=== PATIENT | male | born 1960 | race Caucasian/White ===

== ENCOUNTER 2016-07-19 03:18 | Emergency (ER) | payer OTHER, SELFPAY ==
[2016-07-19 04:15] LABS: Bilirubin Negative (Negative); Blood, Urine Negative (Negative); Glucose, Urine (Dipstick) Negative (Negative); Ketone, Urine Negative (Negative); Nitrite Negative (Negative); Protein, Urine (Dipstick) Negative (Neg-Trace); Urobilinogen 0.2 mg/dL (0.2-1.0)
[2016-07-19 04:19] LABS: Hematocrit 46.8 % (42.0-52.0); Mean Platelet Volume 5.7 fL (7.4-10.4)
[2016-07-19 04:27] LABS: Methadone Not Detected (NotDetected); Methamphetamine Not Detected (NotDetected)
[2016-07-19 04:28] LABS: ALT (SGPT) 22 U/L (0-55); AST (SGOT) 28 U/L (5-34); Acetaminophen Less than 3.0 mcg/mL (10.0-30.0); Alkaline Phosphatase 77 U/L (40-150); Anion Gap 18 mmol/L (10-20); BUN (Urea Nitrogen) 7 mg/dL (8.4-25.7); Bilirubin, Total 0.4 mg/dL (0.2-1.2); Calc. Creatinine Clearance 0 mL/min (70-130); Calcium 9.3 mg/dL (7.8-10.44); Carbon Dioxide 21 mmol/L (22-29); Chloride 104 mmol/L (98-107); Estimated GFR-MDRD 90; Globulin 3.3 g/dL (2.4-3.5); Protein, Total 7.8 g/dL (6.0-8.3); Salicylate Less than 5.0 mg/dL (15.0-30.0)
[2016-07-19 04:37] LABS: #Basophils 0.1 thou/uL (0.0-0.2); #Eosinphils 0.1 thou/uL (0.0-0.7); #Lymphocytes 1.9 thou/uL (1.20-3.40); #Monocytes 0.9 thou/uL (0.11-0.59); #Neutrophils 8.5 thou/uL (1.40-6.50); %Basophils 1.1 % (0.0-1.0); %Eosinophils 1.1 % (0.0-10.0); %Monocytes 8.4 % (0.0-10.0); Macrocytosis SLIGHT = 6-15 cells (100X) (0-5/hpf)
[2016-07-19] MEDS ORDERED: Adacel (T-DAP) 0.5 ML VIAL ONE (04:38)
[2016-07-19] MEDS ORDERED: traMADol HCl 50 MG TAB ONE (04:39)
[2016-07-19] MEDS ORDERED: Ibuprofen 800 MG TAB ONE (04:39)
--- NOTE | 2016-07-19 09:58 | RAD ---
LEFT HUMERUS: DATE: 07/19/16. Four views show no fracture or other acute change. There is no dislocation at the shoulder. The AC joint is normal in width. The visible adjacent ribs appeared intact and the left lung was clear. IMPRESSION: No acute bony finding. POS: HOME
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
== END 2016-07-19 08:47 | disposition home or self-care (01) ==
LOC: BURERS 03:18
DX: S01.21XA Laceration without foreign body of nose, initial encounter (principal); S00.83XA Contusion of other part of head, initial encounter; S40.022A Contusion of left upper arm, initial encounter; F32.9 Major depressive disorder, single episode, unspecified; F43.20 Adjustment disorder, unspecified; X58.XXXA Exposure to other specified factors, initial encounter
CPT/HCPCS: 36415; 70450; 70486; 80053; 80306; 80307; 81003; 84443; 85025; 90471; 90715

== ENCOUNTER 2016-12-14 22:22 | Emergency (ER) | payer OTHER ==
[2016-12-14] MEDS ORDERED: Ketorolac Tromethamine 30 MG/ML VIAL ONE (22:54)
--- NOTE | 2016-12-14 23:00 | RAD ---
CHEST TWO VIEWS: Date: 12-14-16 Comparison: 05-21-[address] [facility]. FINDINGS: The heart is normal in size. The mediastinum shows no widening, shift, or mass. The lungs are fully inflated with no effusions seen. No major infiltrate was seen on the PA view. On the lateral view th ere is a little bit of retrocardiac streaking which may or may not be significant though I cannot fi nd a definite infiltrate on the frontal view. The bones are osteopenic. IMPRESSION: Probably no acute findings. Equivocal retrocardiac streaking. POS: HOME
[2016-12-14 23:14] LABS: ALT (SGPT) 17 U/L (8-55); AST (SGOT) 18 U/L (5-34); Albumin 4.4 g/dL (3.5-5.0); Alkaline Phosphatase 79 U/L (40-150); Anion Gap 17 mmol/L (10-20); BUN (Urea Nitrogen) 10 mg/dL (8.4-25.7); Bilirubin, Total 0.3 mg/dL (0.2-1.2); Calc. Creatinine Clearance 0 mL/min (70-130); Calcium 9.5 mg/dL (7.8-10.44); Carbon Dioxide 22 mmol/L (22-29); Chloride 106 mmol/L (98-107); Estimated GFR-MDRD 89; Globulin 3.3 g/dL (2.4-3.5); Glucose 104 mg/dL (70-105); Potassium 3.7 mmol/L (3.5-5.1); Protein, Total 7.7 g/dL (6.0-8.3); Sodium 141 mmol/L (136-145)
[2016-12-14 23:16] LABS: CKMB 1.6 ng/mL (0-6.6); Troponin I Less than 0.010 ng/mL (< 0.028)
[2016-12-14 23:21] LABS: #Basophils 0.1 thou/uL (0.0-0.2); #Eosinphils 0.2 thou/uL (0.0-0.7); #Lymphocytes 2.9 thou/uL (1.20-3.40); #Monocytes 0.7 thou/uL (0.11-0.59); #Neutrophils 5.7 thou/uL (1.40-6.50); %Basophils 0.9 % (0.0-1.0); %Eosinophils 2.5 % (0.0-10.0); %Lymphocytes 29.9 % (21.0-51.0); %Monocytes 7.1 % (0.0-10.0); %Neutrophils 59.5 % (42.0-75.0); MDiff Complete? YES; Mean Corpuscular HGB CONC 36.3 g/dL (32.0-36.0); Mean Corpuscular Volume 96.6 fl (80.0-94.0); Mean Platelet Volume 6.7 fL (7.4-10.4); Platelet Count 296 thou/uL (130-400); RBC Distribution Width 11.8 % (11.5-14.5); RBC Morphology Normal; Red Blood Cell (RBC) Count 4.58 mill/uL (4.70-6.10); Small Platelets SLIGHT; White Blood Cell (WBC) Count 9.6 thou/uL (4.8-10.8)
== END 2016-12-14 23:43 | disposition home or self-care (01) ==
LOC: BURERS 22:22
DX: M54.12 Radiculopathy, cervical region (principal); I10 Essential (primary) hypertension; J44.9 Chronic obstructive pulmonary disease, unspecified; M19.90 Unspecified osteoarthritis, unspecified site; F41.9 Anxiety disorder, unspecified; F32.9 Major depressive disorder, single episode, unspecified; F17.210 Nicotine dependence, cigarettes, uncomplicated; Z79.899 Other long term (current) drug therapy
CPT/HCPCS: 71020; 80053; 82553; 84484; 85025; 85379; 93005; 96361; 96374; J1885

== ENCOUNTER 2017-05-20 10:28 | Emergency (ER) | payer MEDICARE, OTHER | END 2017-05-20 11:38 | disposition home or self-care (01) | LOC: BURERS 10:28 | DX: J11.1 Influenza due to unidentified influenza virus with other respiratory manifestations (principal); I10 Essential (primary) hypertension; J44.9 Chronic obstructive pulmonary disease, unspecified; F41.9 Anxiety disorder, unspecified; F32.9 Major depressive disorder, single episode, unspecified; F17.210 Nicotine dependence, cigarettes, uncomplicated; M19.90 Unspecified osteoarthritis, unspecified site | CPT/HCPCS: 99283 ==